=== PATIENT | female | born 1970 | race Caucasian/White ===

== ENCOUNTER 2018-12-28 13:28 | Outpatient (CLI) | payer OTHER ==
--- NOTE | 2018-12-28 15:50 | MRI ---
MRI LEFT SHOULDER WITHOUT CONTRAST: HISTORY: S40.012D, contusion of the left shoulder. COMPARISON: 11/03/2018 FINDINGS: BICEPS TENDON: The extraarticular biceps tendon is normal. The intraarticular biceps tendon is norm al. There is a very small tear of the anterior-superior labrum, just anterior to the biceps labral anchor , and to the mid substance. The tear does extend to the undersurface of the biceps tendon. ROTATOR CUFF: The supraspinatus tendon and infraspinatus tendons are intact. Low grade, very mild t endinosis of the supraspinatus tendon at the footprint. No significant undersurface or bursal surfac e tearing. The subscapularis is intact. MUSCLES: The muscle signal and bulk is normal. BONES: Type I acromion. No stress edema. No contusion. SOFT TISSUES: Trace subacromial/subdeltoid bursal effusion. IMPRESSION: 1. Small anterior-superior labral tear just anterior to the biceps labral anchor with extension to t he undersurface of the biceps labral anchor. 2. Small subacromial/subdeltoid bursal effusion. POS: [facility]
== END 2018-12-28 13:29 | disposition home or self-care (01) ==
LOC: TBSIIMAG 13:28
PROVIDERS: ATTEND Family Medicine
DX: S46.912D Strain of unspecified muscle, fascia and tendon at shoulder and upper arm level, left arm, subsequent encounter (principal); S40.012D Contusion of left shoulder, subsequent encounter; M25.412 Effusion, left shoulder